=== PATIENT | male | born 1950 | race Caucasian/White ===

== ENCOUNTER 2019-12-03 09:17 | Emergency (ER) | payer MEDICARE ==
[2019-12-03] MEDS ORDERED: BUFFERED LIDOCAINE 10 ML SYRINGE SUBQ STA (09:43)
[2019-12-03] MEDS ORDERED: BUPIVACAINE 0.5% PF 10 ML VIAL SUBQ STA (09:44)
--- NOTE | 2019-12-03 10:03 | ED Physician Documentation ---
PD HPI UPPER EXT INJURY - Stated complaint Stated Complaint: RT INDEX FINGER LAC - Chief complaint Chief Complaint: Laceration - History obtained from History obtained from: Patient, Family - History of Present Illness Location: Right, Finger (index) Type of injury: Laceration Where injury occurred: Home Timing - onset: Today Timing - duration: Minutes Timing - details: Abrupt onset, Still present Improved by: Rest, Immobilization, Dressing Worsened by: Moving Associated symptoms: No: Weakness, Numbness, Tingling Contributing factors: No: Anticoagulated Similar symptoms before: Diagnosis (laceration) Recently seen: Not recently seen - Additonal information Additional information: 68-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 He is left- handed. He has drilled into the nail. 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" - Past Surgical History Past Surgical History: Yes General: Splenectomy, Other - Allergies Allergies/Adverse Reactions: Allergies Allergy/AdvReac Type Severity Reaction Status Date / Time aspirin AdvReac Unknown Verified 12/03/19 09:58 - Social History Does the pt smoke?: No Smoking Status: Never smoker Does the pt have substance abuse?: No PD ED PE NORMAL - Vitals Vital signs reviewed: Yes (Hypertensive) - General General: Alert and oriented X 3, No acute distress, Well developed/nourished - HEENT HEENT: Atraumatic, PERRL, EOMI - Respiratory Respiratory: No respiratory distress - Derm Derm: Normal color, Warm and dry, No rash - Extremities Extremities: Other (There is a laceration to the right index finger over the radial surface of the distal phalange dorsally injuring the lateral one quarter of the nail. The laceration does not appear to be deep to the bone and the surrounding tissue is otherwise uninjured.) - Neuro Neuro: Alert and oriented X 3, valet manager 2-12 intact, No motor deficit, No sensory deficit, Normal speech Eye Opening: Spontaneous Motor: Obeys Commands Verbal: Oriented GCS Score: 15 - Psych Psych: Normal mood, Normal affect Results - Vitals Vitals: Vital Signs - 24 hr 12/03/19 12/03/19 09:22 10:37 Temperature 36.7 C 36.9 C Heart Rate 96 88 Respiratory 18 14 Rate Blood Pressure 148/82 H 136/79 H O2 Saturation 100 100 Oxygen O2 Source Room air Procedures - Laceration (location) Right index Wound type: Stellate, Clean Neurovascular status: Sensory intact, Motor intact, Vascular intact Anesthesia: Lidocaine 1%, Marcaine 0.5%, With bicarb, Volume - enter cc (4ml), OTH (digital block) Wound Preparation: Hibiclens, Irrigated copiously NS, Wound explored, To the base, Other (distal portion of nail removed) Skin layer closure: Nylon, Interrupted, Size #-0 - enter number (5-0), Sutures - enter # (4) Other: Patient tolerated well, No complications, Neurovascular intact, Dressing applied, Tetanus UTD Complexity: Simple PD MEDICAL DECISION MAKING - ED course Complexity details: re-evaluated patient, considered differential, d/w patient, d/w family ED course: 68-year-old male with a laceration and nail injury to the right index finger is repaired with suturing after cleaning and is expected to do well. Departure - Departure Disposition: 01 Home, Self Care Clinical Impression: Laceration of index finger Qualifiers: Encounter type: initial encounter Damage to nail status: with damage Foreign body presence: without foreign body Laterality: right Qualified Code(s): S61.310A - Laceration without foreign body of right index finger with damage to nail, initial encounter Condition: Stable Instructions: ED Laceration Hand Follow-Up: [facility] [Provider Group] Comments: Sutures should be removed in 7 to 10 days. Discharge Date/Time: 12/03/19 10:37
[2019-12-03 10:39] VITALS: BP 136/79
== END 2019-12-03 10:37 | disposition home or self-care (01) ==
LOC: ED 09:17
DX: S61.310A Laceration without foreign body of right index finger with damage to nail, initial encounter (principal); W27.8XXA Contact with other nonpowered hand tool, initial encounter; Y92.009 Unspecified place in unspecified non-institutional (private) residence as the place of occurrence of the external cause; E10.9 Type 1 diabetes mellitus without complications; Z79.4 Long term (current) use of insulin
CPT/HCPCS: 12001; 99281; 99282

== ENCOUNTER 2022-08-12 11:25 | Outpatient (CLI) | payer MEDICARE ==
[2022-08-12 11:56] LABS: BASOPHILS # (AUTO) 0.1 10^3/uL (0.0-0.1); BASOPHILS % (AUTO) 1.9 %; EOSINOPHILS # (AUTO) 0.2 10^3/uL (0.0-0.7); EOSINOPHILS % (AUTO) 3.2 %; HCT - HEMATOCRIT 50.5 % (42.0-52.0); HGB - HEMOGLOBIN 16.4 g/dL (14.0-18.0); LYMPHOCYTES # (AUTO) 1.7 10^3/uL (1.5-3.5); LYMPHOCYTES % (AUTO) 36.8 %; MEAN CORPUSCULAR HGB CONC 32.5 g/dL (32.0-36.0); MEAN CORPUSCULAR VOLUME 98.4 fL (80.0-94.0); MEAN PLATELET VOLUME 10.4 fL (7.4-11.4); MONOCYTES # (AUTO) 0.7 10^3/uL (0.0-1.0); MONOCYTES % (AUTO) 14.9 %; PLT - PLATELET COUNT 258 10^3/uL (130-450); RED BLOOD COUNT 5.13 10^6/uL (4.70-6.10); RED CELL DISTRIBUTION WIDTH 14.5 % (12.0-15.0); WHITE BLOOD COUNT 4.6 x10^3/uL (4.8-10.8)
[2022-08-12 13:16] LABS: ALBUMIN 4.2 g/dL (3.2-5.5); ALBUMIN/GLOBULIN RATIO 1.3 (1.0-2.2); ALKALINE PHOSPHATASE 61 IU/L (42-121); ALT ALANINE AMINOTRANSFERASE 28 IU/L (10-60); AST ASPARTATE AMINOTRANSFERASE 22 IU/L (10-42); BILIRUBIN,TOTAL 0.6 mg/dL (0.2-1.0); BUN - BLOOD UREA NITROGEN 20 mg/dL (6-20); CALCIUM 9.3 mg/dL (8.5-10.3); CARBON DIOXIDE - CO2 28 mmol/L (21-32); CHLORIDE 105 mmol/L (101-111); CREATININE 0.9 mg/dL (0.6-1.2); GFR - MDRD 83 (>89); GLUCOSE 117 mg/dL (70-100); POTASSIUM 4.5 mmol/L (3.5-5.0); SODIUM 137 mmol/L (135-145); TOTAL PROTEIN 7.4 g/dL (6.7-8.2)
[2022-08-12 13:18] LABS: CRP - C-REACTIVE PROTEIN < 1.0 mg/dL (0-1.0)
== END 2022-08-12 11:26 | disposition home or self-care (01) ==
LOC: LAB 11:25
PROVIDERS: ATTEND Internal Medicine
DX: D89.89 Other specified disorders involving the immune mechanism, not elsewhere classified (principal); Z51.81 Encounter for therapeutic drug level monitoring
CPT/HCPCS: 36415; 80053; 82784; 85025; 85651; 86140